=== PATIENT | female | born 1970 | race Caucasian/White ===

== ENCOUNTER 2017-01-26 15:31 | Emergency (ER) | payer OTHER ==
--- NOTE | 2017-01-26 15:51 | UC ---
Respiratory Complaint HPI - HPI Summary HPI Summary: The patient comes in today for: 1. Shortness of breath: Onset: 4 hours. Palliative/provocative: "exertion makes her dizzy." Quality: Shortness of breath. Region: Lungs. Severity: No chest pain 0/10 Time: Constant. Associated symptoms: FEvers: None Left hip replacement: 3 weeks ago in [place] score: 6 * - History of Current Complaint Chief Complaint: UCRespiratory Stated Complaint: SOB Time Seen by Provider: 01/26/17 15:45 Hx Obtained From: Patient Hx Last Menstrual Period: 12/27/16 - Allergies/Home Medications Allergies/Adverse Reactions: Allergies Allergy/AdvReac Type Severity Reaction Status Date / Time Codeine Allergy Intermediate Hives Verified 01/26/17 15:42 Diphenhydramine Allergy Mild hyperactivi Verified 01/26/17 15:42 [From Benadryl] ty Home Medications: Home Medications Albuterol HFA INHALER* [Ventolin HFA Inhaler*] 2 puff INH Q4HR PRN 01/26/17 [ History Confirmed 01/26/17] Aspirin [Aspirin 81 MG TAB] 1 tab PO DAILY 01/26/17 [History Confirmed 01/26/17] Bisacodyl [Dulcolax] 1 tab PO BID 01/26/17 [History Confirmed 01/26/17] Senna [Correctol Herbal Tea] 2 tab PO BEDTIME 01/26/17 [History Confirmed ] PMH/Surg Hx/FS Hx/Imm Hx Previously Healthy: No - Diverticulosis Endocrine History Of: Denies: Diabetes, Thyroid Disease, Hyperthyroidism, Hypothyroidism, Dyslipidemia Cardiovascular History Of: Reports: Hypertension Denies: Cardiac Disorders, Pacemaker/ICD, Myocardial Infarction, Congestive Heart Failure, Atrial Fibrillation, Deep Vein Thrombosis, Bleeding Disorders Respiratory History Of: Reports: Asthma - SLIGHT. HAS INHALER Denies: COPD, Bronchitis, Pneumonia, Pulmonary Embolism GI/ History Of: Denies: Gastroesophageal Reflux, Ulcer, Gastrointestinal Bleed, Gall Bladder Disease, Kidney Stones, Diverticulitis, Renal Disease, Urosepsis Neurological History Of: Denies: CVA Psychological History Of: Denies: Anxiety Cancer History Of: Denies: Lung Cancer, Colorectal Cancer, Breast Cancer, Prostate Cancer, Cervical Cancer Other History Of: Anticoagulant Therapy Negative For: HIV, Hepatitis B, Hepatitis C - Surgical History Surgical History: Yes Surgery Procedure, Year, and Place: breast reduction. gallbladder removed. Left Total Hip Replacement 01/06/17- [facility] - Family History Known Family History: Negative: Hypertension, Diabetes - Social History Occupation: Employed Full-time Alcohol Use: None Substance Use Type: None Smoking Status (MU): Never Smoked Tobacco - Immunization History Most Recent Influenza Vaccination: no Review of Systems Constitutional: Negative Eyes: Negative ENT: Negative Respiratory: Shortness Of Breath Cardiovascular: Negative Gastrointestinal: Negative All Other Systems Reviewed And Are Negative: Yes Physical Exam Triage Information Reviewed: Yes Appearance: Well-Appearing, No Pain Distress, Well-Nourished, Other: - she complains of shortness of breath which is a bit better sitting up. Vital Signs: Initial Vital Signs Temp 97.9 F 01/26/17 15:34 Pulse 103 01/26/17 15:34 Resp 18 01/26/17 15:34 BP 133/82 01/26/17 15:34 Pulse Ox 100 01/26/17 15:34 Vital Signs Reviewed: Yes Eyes: Positive: Conjunctiva Clear. Negative: Discharge ENT: Positive: Hearing grossly normal. Negative: Pharyngeal erythema, Nasal congestion, Nasal drainage, TM bulging, TM dull, TM red, Tonsillar swelling, Tonsillar exudate Dental: Negative: Gross Decay/Caries @, Dental Fracture @ Neck: Positive: Supple, Nontender, No Lymphadenopathy. Negative: Nuchal Rigidity Respiratory: Positive: Chest non-tender, Lungs clear, No respiratory distress, No accessory muscle use. Negative: Crackles, Wheezing Cardiovascular: Positive: RRR, No Murmur Abdomen Description: Positive: Nontender, No Organomegaly, Soft. Negative: Distended Musculoskeletal: Positive: Strength Intact, ROM Intact, No Edema Neurological: Positive: Alert, Muscle Tone Normal Psychological: Positive: Age Appropriate Behavior, Consolable Skin: Negative: rashes, breakdown UC Diagnostic Evaluation - Laboratory O2 Sat by Pulse Oximetry: 100 Diagnostic Studies Comment: EKG: Rate: 98. Rhythm: Sinus. Ectopy: sinus tachycardia. Acute changes: Deep q in lead III, shallow inverted T in lead III Respiratory Course/Dx - Course Course Of Treatment: Patient was told that I strongly recommend that she go via ambulance to the closest hospital ([facility]). She did not agree iniitially and bargaining had to take place. Eventually, she agreed to go only via private car to [facility]. - Differential Dx/Diagnosis Provider Diagnoses: Shortness of breath--rule out P.E. - Physician Notification/Consults Discussed Patient Care With: Ester Weaver was talked to about this patient. Time Discussed With Above Provider: 16:18 Discharge - Discharge Plan Condition: Stable Disposition: AGAINST MEDICAL ADVICE
[2017-01-26 16:24] VITALS: BP 118/86
== END 2017-01-26 16:23 | disposition left against medical advice (07) ==
LOC: UCCORT 15:31
DX: R06.02 Shortness of breath (principal); I10 Essential (primary) hypertension; J45.909 Unspecified asthma, uncomplicated; Z79.01 Long term (current) use of anticoagulants; Z90.49 Acquired absence of other specified parts of digestive tract; Z88.5 Allergy status to narcotic agent; Z88.8 Allergy status to other drugs, medicaments and biological substances; Z96.642 Presence of left artificial hip joint
CPT/HCPCS: 93005; 99202; G0463

== ENCOUNTER 2017-05-12 09:48 | Emergency (ER) | payer OTHER ==
[2017-05-12 09:55] VITALS: BP 134/78
[2017-05-12] MEDS ORDERED: predniSONE TAB* 20 MG PO ONE (10:07)
--- NOTE | 2017-05-12 10:12 | UC ---
Respiratory Complaint HPI - HPI Summary HPI Summary: Sore throat, congestion and hoarseness starting wednesday. By wednesday this progressed to cough and sob. Puffer and nebulizer has helped but is temporary. she has had wheezing and at times productive cough. Chills last night. no hx of hospitalization but she does have hx of reactive airway disease. she works as a teacher. - History of Current Complaint Chief Complaint: UCRespiratory Stated Complaint: COUGH SHORTNESS OF BREATH Time Seen by Provider: 05/12/17 09:52 Hx Obtained From: Patient Hx Last Menstrual Period: unknown, ablasion Onset/Duration: Gradual Onset, Lasting Days Timing: Constant Severity Initially: Mild Severity Currently: Moderate Character: Cough: Productive Aggravating Factors: Deep Breaths, Recumbent Position Alleviating Factors: Bronchodilator Associated Signs And Symptoms: Positive: Dyspnea, Chills, Wheezing, URI, Nasal Congestion, Hoarseness. Negative: Fever, Pleuritic Chest Pain, Hemoptysis - Risk Factors Pulmonary Embolism Risk Factors: Negative Cardiac Risk Factors: Negative Pseudomonas Risk Factors: Negative Tuberculosis Risk Factors: Negative - Allergies/Home Medications Allergies/Adverse Reactions: Allergies Allergy/AdvReac Type Severity Reaction Status Date / Time Codeine Allergy Intermediate Hives Verified 05/12/17 09:55 Diphenhydramine Allergy Mild hyperactivi Verified 05/12/17 09:55 [From Benadryl] ty PMH/Surg Hx/FS Hx/Imm Hx Previously Healthy: No - reactive airway disease. Other History Of: Anticoagulant Therapy Negative For: HIV, Hepatitis B, Hepatitis C - Surgical History Surgical History: Yes Surgery Procedure, Year, and Place: breast reduction. gallbladder removed. Left Total Hip Replacement 01/06/17- [facility] - Family History Known Family History: Positive: None Negative: Hypertension, Diabetes - Social History Occupation: Employed Full-time Alcohol Use: Rare Substance Use Type: None Smoking Status (MU): Never Smoked Tobacco - Immunization History Most Recent Influenza Vaccination: no Review of Systems Respiratory: Shortness Of Breath, Cough All Other Systems Reviewed And Are Negative: Yes Physical Exam Triage Information Reviewed: Yes Appearance: Well-Appearing - non toxic but there is a frequent cough. she walks to xray joking appropriately and not showing signs of increased work of breathing. Vital Signs: Initial Vital Signs Temp 98.3 F 05/12/17 09:51 Pulse 108 05/12/17 09:51 Resp 22 08/30/17 09:51 BP 134/78 05/12/17 09:51 Pulse Ox 99 05/12/17 09:51 Vital Signs Reviewed: Yes Eye Exam: Normal Eyes: Positive: Conjunctiva Clear ENT: Positive: Nasal congestion. Negative: Pharyngeal erythema, Tonsillar swelling, Tonsillar exudate, Trismus, Muffled/hoarse voice Neck exam: Normal Neck: Positive: Supple, Nontender, No Lymphadenopathy Respiratory Exam: Other - good air movement throughout. there is prolonged expiratory phase. she did breathing treatment one-two hours ago. Respiratory: Positive: No respiratory distress, No accessory muscle use, Respiratory distress Cardiovascular Exam: Other - HR in triage noted elevated. currently it is 90 during my exam at rest. Cardiovascular: Positive: RRR, No Murmur, Pulses Normal Abdominal Exam: Normal Musculoskeletal Exam: Other - neg homans bakari. no redness or induration. Musculoskeletal: Positive: No Edema Neurological Exam: Normal Psychological Exam: Normal Skin Exam: Normal UC Diagnostic Evaluation - Laboratory O2 Sat by Pulse Oximetry: 99 Respiratory Course/Dx - Course Course Of Treatment: URi progressing to bronchitis with reactive airway disease. she has never had complications or hospitalization. we will aggressively manage. she also agrees to return to ed if there is any worsening. pertusis pending for cough to the point of vomiting. - Differential Dx/Diagnosis Provider Diagnoses: acute bronchitis with reactive airway disease. she is doing well and in no distress. HR at rest is normal. she will be careful and go to the Ed for any worsening. x ray report pending. x ray reviewed and no signs of pneumonia or pneumothorax. Discharge - Discharge Plan Condition: Good Disposition: HOME Prescriptions: Azithromyxin LOIS (NF) [Z-Lois (Zithromax) 250 mg tabs #6] 6 tab PO .TODAY, THEN 1 DAILY #6 tab Benzonatate CAP* [Tessalon 100 MG CAP*] 100 mg PO TID PRN #20 cap PRN Reason: Cough predniSONE TAB* [Deltasone TAB*] 20 mg PO DAILY #20 tab
--- NOTE | 2017-05-12 10:35 | RAD ---
INDICATION: Cough and shortness of breath. COMPARISON: Comparison is made with a prior chest x-ray study from September 30, 2013. TECHNIQUE: Dual-energy PA and lateral views of the chest were obtained. FINDINGS: The heart is within normal limits in size. Mediastinal and hilar contours appear within normal limits. The lungs are clear. No pleural effusion or pneumothorax is seen. IMPRESSION: NO EVIDENCE FOR ACTIVE CARDIOPULMONARY DISEASE.
== END 2017-05-12 11:01 | disposition home or self-care (01) ==
LOC: UCCORT 09:48
DX: J02.9 Acute pharyngitis, unspecified (principal)
CPT/HCPCS: 71020; 87798; 99212; G0463; J7512

== ENCOUNTER 2017-10-29 09:45 | Emergency (ER) | payer OTHER ==
--- NOTE | 2017-10-29 12:40 | UC ---
Abdominal Pain Female HPI - HPI Summary HPI Summary: "I think I have c-diff again". pt describes this as nausea, bloating and diarrhea for 2 weeks. last pm, the pain and distension became " massive". pt reports feeling "feverish" but hasn't taken her temperature. the c-diff was in december of 2016 and the result of being tx with antibiotics for diverticular disease. diarrhea has mucous but not blood and is watery. no antibiotic use, travel hx, well water or raw seafodd consumption. - History of Current Complaint Stated Complaint: POSS C-DIFF Time Seen by Provider: 10/29/17 12:21 Hx Obtained From: Patient Hx Last Menstrual Period: unknown, ablasion ?: No Onset/Duration: Gradual Onset Timing: Constant Severity Initially: Mild Severity Currently: Severe Location: Diffuse Radiates: No Character: Sharp Aggravating Factor(s): Movement Alleviating Factor(s): Nothing Associated Signs and Symptoms: Positive: Fever, Nausea, Diarrhea. Negative: Vomiting Simlar Episode/Dx as:: c-diff and diverticular dz Allergies/Adverse Reactions: Allergies Allergy/AdvReac Type Severity Reaction Status Date / Time codeine Allergy Hives Verified 10/29/17 12:37 diphenhydramine Allergy Agitation Verified 10/29/17 12:37 Home Medications: Home Medications Glycerin [Fleet Liquid Glycerin Sup] 5.6 gm MT PRN 10/29/17 [History] PMH/Surg Hx/FS Hx/Imm Hx GI/ History: Diverticulitis, Other - c-diff colitis Other GI/ History: c-diff colitis Other History Of: Anticoagulant Therapy Negative For: HIV, Hepatitis B, Hepatitis C - Surgical History Surgical History: Yes Surgery Procedure, Year, and Place: breast reduction. gallbladder removed. Left Total Hip Replacement 01/06/17- [facility] - Family History Known Family History: Positive: None Negative: Hypertension, Diabetes - Social History Occupation: Employed Full-time Lives: With Family Alcohol Use: Rare Substance Use Type: None Smoking Status (MU): Never Smoked Tobacco - Immunization History Most Recent Influenza Vaccination: no Vaccination Up to Date: Yes Review of Systems Constitutional: Fever, Other - malaise Skin: Negative Eyes: Negative ENT: Negative Respiratory: Negative Cardiovascular: Negative Gastrointestinal: Abdominal Pain, Diarrhea, Nausea Genitourinary: Negative Motor: Negative Neurovascular: Negative Musculoskeletal: Negative Neurological: Negative Psychological: Negative Is Patient Immunocompromised?: No All Other Systems Reviewed And Are Negative: Yes Physical Exam Triage Information Reviewed: Yes Appearance: Well-Appearing Vital Signs Reviewed: Yes Eye Exam: Normal ENT: Positive: Hearing grossly normal Neck: Positive: Supple, Nontender, No Lymphadenopathy Respiratory: Positive: Lungs clear, Normal breath sounds, No respiratory distress Cardiovascular: Positive: RRR, No Murmur, Pulses Normal Abdomen Description: Positive: Other: - Diffuse tenderness but BLQ's with guarding and rebound tenderness. No mass or HSM, No CVA tenderness.. Negative: Bruit, Pulsatile Mass Bowel Sounds: Positive: Present Musculoskeletal: Positive: No Edema Neurological: Positive: Alert Psychological: Positive: Age Appropriate Behavior Skin Exam: Normal Abd Pain Female Course/Dx - Course Course Of Treatment: pt has an acute abdomen. she has had no recent antibiotics or illness to cause an over c-diff colitis. this could be c-diff but also an appendicitis, diverticulitis and even a perforation. doubtful ectopic. pt requires ER transfer for a higher level of evaluation/care. case was d/w Dr Vela whom agrees. pt insists that I just give her flagyl; however, this would be detrimental to this pt thus transfer advised. pt very agitated at this provider for not just giving her the flagyl. she then proceeded to deny fever, pain and states "it is just a viral illness". she is refusing to sign ama citing her insurance won't pay and she doesn't want to go to the ER. I had pt speak to charge nurse as well since she is not satisfied with myself. pt was given a note for her employer that she came here but again refused to sign any ama. i did advise of the potential risk of those missed diagnoses. pt advised f/ u pcp today. - Differential Dx/Diagnosis Provider Diagnoses: abdominal pain. diarrhea. subjective fever. Discharge - Discharge Plan Condition: Fair Disposition: AGAINST MEDICAL ADVICE Forms: *Work Release Referrals: ASTER Dougherty [Primary Care Provider] -
[2017-10-29 12:46] VITALS: BP 143/92
== END 2017-10-29 13:05 | disposition left against medical advice (07) ==
LOC: UCCORT 09:45
DX: R10.84 Generalized abdominal pain (principal); R19.7 Diarrhea, unspecified; R50.9 Fever, unspecified; Z53.8 Procedure and treatment not carried out for other reasons; Z86.19 Personal history of other infectious and parasitic diseases
CPT/HCPCS: 99212; G0463

== ENCOUNTER 2018-10-29 09:32 | Emergency (ER) | payer OTHER ==
--- OUTSIDE RECORDS SUMMARY | 2018-10-29 10:37 | XMS REPORT | Continuity of Care Document ---
:1970 External Reference #:[id number] Author Name Cuate Iyer M.D., [facility] Address [address] [place] [place] [address] Care Team Providers Name Role Phone Cyndi Kumar MD Care Team Information Regional Account Executive Unavailable Cyndi Kumar MD Primary Care Physician Unavailable Payers Date Identification Numbers Payment Provider Subscriber Policy Number: [id number] [employer] Briana Ann [facility] PayID: [id number] [address] [place] [address] Expires: 2016 Policy Number: [id number] Medicaid Briana A [facility] PayID: [id number] [address] [place] [address] Advance Directives Description No Information Available Problems Description No Information Family History Date Family Member(s) Observation Comments Father due to () Septicemia Father Hypertension Mother due to COPD () Mother due to () Congestive Heart Failure : (age First Brother due to Failed sounds like viral 51 Years) Heart Transplant cardiomyopathy Social History Type Date Description Comments Sex Unknown Lives With Children Diet Healthy, Well Balanced Occupation Computer Systems Software Architect Provider Tobacco Use Start: Unknown Never Smoked Cigarettes Smoking Status Reviewed: 10/19/18 Never Smoked Cigarettes ETOH Use Rarely consumes alcohol Allergies, Adverse Reactions, Alerts Date Description Reaction Status Severity Comments Benadryl hyperactivity Active 04/13/2016 Codeine Active Codeine/Acetaminophen naseau and vomiting Inactive Medications Medication Date Status Form Strength Qnty SIG Indications Ordering Provider Lisinopril-Hydroch 10/19/19 Active Tablets 20-12.5mg 60tab take two I10 Jaylon lorothiazide 19 s tablets , Cuate by mouth Denys Luevano, every [facility] day Trazodone HCL Active Tablets 50mg 1 tab at Unknown 00 bedtime as needed for sleep Xanax 04/01/20 Hx Tablets 1mg 2tabs 1 by Pomjos, 16 - mouth 45 Carlos, Unknown minutes M.D. prior to mri. may repeat once as needed for anxiety Metaxalone 03/05/20 Hx Tablets 800mg 60tab 1 by Ana, 16 - s mouth Carlos, Unknown 3-4 M.D. times daily for muscle spasms Diclofenac Sodium 03/05/20 Hx Tablets 75mg 60tab take [address] s tablet Carlos, Unknown by mouth M.DNanette twice daily with food Lisinopril 01/24/20 Hx Tablets 20mg 30tab 1 po qd I10 Jaylon 13 - s , Cuate 10/19/19 Denys Luevano, 19 [facility] Hydrochlorothiazid 01/24/20 Hx Tablets 25mg 90tab 1 po qd Jaylon e 13 - s , Cuate 12/16/19 Denys Luevano, 16 [facility] Amlodipine 01/24/20 Hx Tablets 5mg 60tab 1 po qd Jaylon Besylate 13 - s , Cuate 12/16/19 Denys Luevano, 16 [facility] Aspirin 07/24/20 Hx Tablets 81mg 1 po qd 427.31 Bo Armendariz - Nataly 12/16/19 Floridalma Iverson , MSN, MANAGER PROGRAMMING Omeprazole 07/16/20 Hx Capsules 20mg 30cap 1 po q 530.[address] s day , Cuate 12/16/19 Denys Luevano, 16 [facility] Aspirin 07/16/20 Hx Tablets 325mg 1 po qd 427.31 Kala, 10 - Nataly Unknown Floridalma , MSN, MANAGER PROGRAMMING Bystolic 05/02/20 Hx Tablets 5mg 30tab 1 po qd Jaylon 10 - s , Cuate 01/24/20 Denys Luevano, 13 [facility] Bystolic 03/14/20 Hx Tablets 2.5mg 30tab 1qd - Jaylon 10 - s take one , Cuate Peng tablet Denys Luevano, by mouth [facility] every day Atenolol 01/31/20 Hx Tablets 50mg 60tab 1 po bid Armendariz, 10 - s Nataly 03/14/20 Floridalma 10 , MSN, MANAGER PROGRAMMING Atenolol 06/25/20 Hx Tablets 50mg 30tab 1 po qd Armendariz, 09 - s Nataly 01/31/20 Floridalma 10 , MSN, MANAGER PROGRAMMING Metoprolol 06/24/20 Hx Tablets 50mg 30tab 1 tab po Armendariz, Succinate 09 - ER 24HR s qpm Nataly 06/25/20 Floridalma 09 , MSN, MANAGER PROGRAMMING Hydrochlorothiazid 06/11/20 Hx Tablets 25mg 90tab 1 po qd Jaylon e 09 - s , Cuate Luevano M.D., [facility] Bystolic 06/11/20 Hx Tablets 10mg 30tab 1 po qd Jaylon 09 - s , Cuate 06/24/20 Denys Luevano, 09 [facility] Lexapro Hx Tablets 10mg 30tab 1 po qd Jaylon 00 - s , Cuate Luevano M.D., [facility] Abilify Hx Tablets 2mg po qd Jaylon 00 - , Cuate Unknown Denys Luevano, [facility] Alprazolam Hx Tablets 0.25mg 1 po qd Jaylon 00 - prn , Cuate Luevano M.D., [facility] Vitamin D3 Hx Capsules 2000Unit 2 caps Jaylon 00 - po qd , Cuate 12/16/19 Denys Luevano, 16 [facility] Requip Hx Tablets 0.5mg 1 tab qd Jaylon 00 - hs , Cuate Luevano M.D., [facility] Lexapro Hx Tablets 10mg 1 po qd Unknown 00 - Unknown Xanax Hx Tablets prn Unknown 00 - Unknown Medications Administered in Office Medication Date Status Form Strength Qnty SIG Indications Ordering Provider Methylprednisolone 12/15 Administered Injection Brenda acetate Aicha (Depomedrol) 80mg S., RPAC injection Immunizations Description No Information Available Vital Signs Date Vital Result Comment 10/19/2018 2:37pm BP Systolic Sitting Right Arm 168 mmHg BP Diastolic Sitting Right Arm 106 mmHg Heart Rate 77 /min Respiratory Rate 18 /min Height 69 inches 5'9" Weight 236.00 lb BMI (Body Mass Index) 34.8 kg/m2 BSA (Body Surface Area) 2.22 m2 Lyons body weight in kilograms 66 kg O2 % BldC Oximetry 98 % Ora 12/16/2015 9:57am BP Systolic 157 mmHg BP Diastolic 86 mmHg Heart Rate 103 /min Height 68 inches 5'8" Weight 224.00 lb BMI (Body Mass Index) 34.1 kg/m2 BSA (Body Surface Area) 2.14 m2 07/24/2010 11:30am BP Systolic Sitting Left Arm 108 mmHg BP Diastolic Sitting Left Arm 70 mmHg Heart Rate 72 /min Regular Respiratory Rate 12 /min Weight 227.00 lb 07/16/2010 3:50pm BP Systolic Sitting Right Arm 134 mmHg BP Diastolic Sitting Right Arm 86 mmHg Heart Rate 68 /min regular Respiratory Rate 16 /min Height 69 inches 5'9" Weight 229.00 lb BMI (Body Mass Index) 33.8 kg/m2 03/14/2010 2:53pm Heart Rate 78 /min Respiratory Rate 16 /min Weight 233.00 lb 06/11/2009 2:21pm Heart Rate 64 /min Regular Respiratory Rate 16 /min Weight 227.00 lb Results Description No Information Available Procedures Date Code Description Status 10/19/2018 71587 EKG-Tracing And Report Completed 03/05/2016 81043 Radiologic Exam Hip Unilateral With Pelvis 2-3 Views Completed 03/05/2016 94659 Radiologic Exam Hip Unilateral With Pelvis 2-3 Views Completed 03/05/2016 37594 Radiology, L-S Spine Complete Completed 03/05/2016 44084 Radiology, L-S Spine Complete Completed 12/16/2015 42914 Radiology, Shoulder: Two Views (Sso) Completed 12/16/2015 00627 Radiology, Shoulder: Two Views (Sso) Completed 12/16/2015 89852 Asp./Injection major joint Completed 04/20/2011 77020 EKG Interpretation And Report Only Completed 07/24/2010 64698 Echocardiogram Complete Completed 07/16/2010 38209 EKG-Tracing And Report Completed 07/15/2010 66719 Holter Monitor 24HR Inter/Report Completed 06/19/2009 16455 Holter Monitor 24HR Inter/Report Completed 06/11/2009 24366 EKG-Tracing And Report Completed 05/27/2009 40654 Stress Test Interpre And Report Only Completed 05/27/2009 55951 Stress Test Physician Super Only Completed 05/27/2009 36213 Ejection Fraction Completed 05/27/2009 14370 Myocardial Wall Motion Completed 05/27/2009 98738 Cardiolite Stress/Rest Spect Completed Encounters Type Date Location Provider Dx Diagnosis Office Visit 10/19/2018 Cardiology Office Aura Maraltyson I10 Essential ( primary) 2:20p Desmond., JOE hypertension R06.02 Shortness of breath R00.2 Palpitations I48.0 Paroxysmal atrial fibrillation Office Visit 04/13/2016 3:30p Orthopaedic Office Aicha Gutierrez M25.552 Pain in S., [facility] left hip M24.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, left hip M16.12 Unilateral primary osteoarthritis, left hip Office Visit 04/01/2016 1:30p Orthopaedic Office Aicha Gutierrez M25.552 Pain in S., [facility] left hip M24.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, left hip Office Visit 03/05/2016 3:15p Orthopaedic Office Aicha Gutierrez M25.552 Pain in S., [facility] left hip M54.5 Low back pain Office Visit 12/16/2015 10:00a Orthopaedic Office Aicha Gutierrez M25.512 Pain in left S., [facility] shoulder M65.222 Calcific tendinitis, left upper arm Office Visit 08/03/2011 Cardiology Cuate Iyer 786.50 Pain Chest Unspec 11:38a Office Denys Luevano, [facility] Office Visit 07/24/2010 Cardiology Nataly Armendariz 427.31 Atrial 11:20a Office Floridalma MSN, Fibrillation MANAGER PROGRAMMING 401.1 Hypertension Benign Office Visit 03/14/2010 2:40p Cardiology Office Cuate Iyer 785.1 Palpitations Denys Luevano, [facility] 780.79 Malaise And Fatigue Other Office Visit 06/11/2009 2:00p Cardiology Office Cuate Iyer 786.59 Pain Chest Denys Luevano, [facility] Other 401.1 Hypertension Benign 425.4 Cardiomyopathy Other Prim Plan of Treatment Future Appointment(s):11/14/2018 1:20 pm - Tavia Chavarria, PA at Cardiology [id number]/19/2018 - Tavia Chavarria, PAI10 Essential (primary) hypertensionNew Medication:Lisinopril-Hydrochlorothiazide 20-12.5 mg - take two tablets by mouth every dayNew Labs:Comprehensive Metabolic Panel, Ordered: 10/19Magnesium, Ordered: 10/19/18Basic Metabolic Panel, Scheduled: Magnesium, Scheduled: 10/26/18Comments:Start lisinopril-HCTZ 40-25mg daily. Labs today and again in 7-10 days. Continue to monitor BP's at home. Bring a record of the home BP's to the next visit. Sodium restriction of <2gm recommended.R06.02 Shortness of breathNew Orders:Echocardiogram, Exercise Stress , Ordered: 10/19/18Comments:We will evaluate the patient's ischemic potential with a stress echocardiogram. We will also be ableto assess for arrhythmias and hemodynamic response to exercise.R00.2 PalpitationsNew Labs:CBC W/Automated Diff , Ordered: 10/19/18TSH Reflex FT4 And/Or FT3, Ordered: 10/19/18Comments:Will order a 48 hour HM to evaluate for arrhythmias. Will check CBC and TSH.I48.0 Paroxysmal atrial fibrillationNew Orders:48 Hour Holter Monitor, Ordered: Comments:She will wear a 48 hour HM as above.AllFollow up:After testing
[2018-10-29 10:46] VITALS: BP 146/86
--- NOTE | 2018-10-29 10:58 | UC ---
Respiratory Complaint HPI - HPI Summary HPI Summary: Third visit this week for cough with shortness of breath, currently on day 3 of azithromycin for treatment of bronchitis. Feels dizzy and unwell, and finds it difficult to speak. No chest pain or palpitations. - History of Current Complaint Chief Complaint: UCGeneralIllness Stated Complaint: CHEST CONGESTION, COUGH Time Seen by Provider: 10/29/18 10:57 Hx Obtained From: Patient Hx Last Menstrual Period: unknown, ablasion Onset/Duration: Lasting Days - 5 Pain Intensity: 0 Character: Cough: Productive Aggravating Factors: Deep Breaths, Recumbent Position Associated Signs And Symptoms: Positive: Dyspnea, Dizziness, Nasal Congestion - Risk Factors Pulmonary Embolism Risk Factors: Negative Cardiac Risk Factors: Negative Pseudomonas Risk Factors: Negative Tuberculosis Risk Factors: Negative - Allergies/Home Medications Allergies/Adverse Reactions: Allergies Allergy/AdvReac Type Severity Reaction Status Date / Time codeine Allergy Hives Verified 10/29/17 12:37 diphenhydramine Allergy Agitation Verified 10/29/17 12:37 Home Medications: Home Medications Azithromycin 500 mg PO DAILY 10/29/18 [History Confirmed 10/29/18] PMH/Surg Hx/FS Hx/Imm Hx Previously Healthy: Yes Other History Of: Anticoagulant Therapy Negative For: HIV, Hepatitis B, Hepatitis C - Surgical History Surgical History: Yes Surgery Procedure, Year, and Place: breast reduction. gallbladder removed. Left Total Hip Replacement 01/06/17- [facility] - Family History Known Family History: Positive: Non-Contributory - Social History Occupation: Employed Full-time Lives: With Family Alcohol Use: Rare Substance Use Type: None Smoking Status (MU): Never Smoked Tobacco - Immunization History Most Recent Influenza Vaccination: no Vaccination Up to Date: Yes Review of Systems All Other Systems Reviewed And Are Negative: Yes Constitutional: Positive: Fatigue Skin: Positive: Negative Eyes: Positive: Negative ENT: Positive: Negative Respiratory: Positive: Shortness Of Breath, Cough Cardiovascular: Positive: Negative Gastrointestinal: Positive: Negative Genitourinary: Positive: Negative Motor: Positive: Negative Neurovascular: Positive: Negative Musculoskeletal: Positive: Negative Neurological: Positive: Headache, Other - dizziness Psychological: Positive: Negative Is Patient Immunocompromised?: No Physical Exam Appearance: Ill-Appearing Vital Signs: Initial Vital Signs Temp 96.9 F 10/29/18 10:43 Pulse 80 10/29/18 10:43 Resp 20 10/29/18 10:43 BP 146/86 10/29/18 10:43 Pulse Ox 98 10/29/18 10:43 ENT: Positive: Pharynx normal, TMs normal Neck: Positive: Supple, Nontender, No Lymphadenopathy Respiratory: Positive: No respiratory distress, Decreased breath sounds - to left base, Crackles - left base Cardiovascular: Positive: RRR, No Murmur UC Diagnostic Evaluation - Laboratory O2 Sat by Pulse Oximetry: 98 Diagnostic Studies Comment: chest xray without pneumonia per Dr. Berry. Respiratory Course/Dx - Course Course Of Treatment: prednisone added, albuterol via nebs (has a nebulizer at home). - Differential Dx/Diagnosis Differential Diagnosis/HQI/PQRI: Bronchitis, Lower Resp Infection Provider Diagnosis: Bronchitis Discharge - Sign-Out/Discharge Documenting (check all that apply): Patient Departure All imaging exams completed and their final reports reviewed: No Studies - Discharge Plan Condition: Stable Disposition: HOME Prescriptions: Albuterol 2.5MG/3ML (0.083%)* [Ventolin 2.5 MG/3 ML NEB.MARCI*] 2.5 mg INH Q6H PRN #40 [email or web address] PRN Reason: Wheezing predniSONE TAB* [Deltasone 20 MG TAB*] 2 tab PO DAILY #10 tab Patient Education Materials: Acute Bronchitis (ED) Referrals: No Primary Care Phys,NOPCP [Primary Care Provider] - Additional Instructions: For relief of breathlessnes, begin use of prednisone 40mg once daily with food for 5 days. By tomorrow, this should allow you to breathe more fully. use albuterol nebulizers up to 4 times per day to relieve breathlessness. Complete your course of azithromycin. - Billing Disposition and Condition Condition: STABLE Disposition: Home
== END 2018-10-29 11:44 | disposition home or self-care (01) ==
LOC: UCCORT 09:32
DX: J40 Bronchitis, not specified as acute or chronic (principal); Z88.5 Allergy status to narcotic agent; Z88.8 Allergy status to other drugs, medicaments and biological substances
CPT/HCPCS: 71046; 99212; G0463

== ENCOUNTER 2018-11-07 09:53 | Observation (INO) | payer OTHER ==
[2018-11-07] MEDS ORDERED: Albuterol/Ipratropium NEB.SOL* Albuterol 2.5 MG/Ipratropium 0.5 MG 3 ML INH ONE (11:05)
[2018-11-07] MEDS ORDERED: Dexamethasone IV* 4 MG/ML 1 ML (4 MG) IM ONE (11:06)
--- NOTE | 2018-11-07 11:15 | ED ---
Respiratory - HPI Summary HPI Summary: Patient is a 48-year-old female presenting to the ED with a three-week history of SOB. She states she has been seen 3 times by her PCP as well as urgent care. X-ray and d-dimer both been negative. She continues to have worsening SOB, and states she is unable to walk a short distance without needing to sit down. She has never had a history of asthma or COPD. She denies any fever, however endorses intermittent sweats and chills. She endorses cough and congestion feeling with some production of sputum which is white. She endorses some bilateral lower abdominal pain, which she states is often due to coughing. She states she has not been unable to go to work 3 weeks due to her worsening SOB. She has been treated with prednisone and azithromycin as well as the oral inhalers and has been using nebulizer treatments (given by her PCP) 3 times daily without improvement. He is tearful on arrival she states she is struggling to breathe. - History of Current Complaint Chief Complaint: EDShortnessOfBreath Stated Complaint: SOB Time Seen by Provider: 11/07/18 10:32 Hx Obtained From: Patient Onset/Duration: Sudden Onset Timing: Constant Initial Severity: Severe Current Severity: Severe Pain Intensity: 0 Character: Cough (Productive) Sputum Amount: Small Sputum Color: White Alleviating Factor(s): Nothing Associated Signs and Symptoms: Negative - Risk Factors Status Asthmaticus Risk Factors: Negative Pulmonary Embolism Risk Factors: Negative Cardiac Risk Factors: Negative Tuberculosis Risk Factors: Negative - Allergy/Home Medications Allergies/Adverse Reactions: Allergies Allergy/AdvReac Type Severity Reaction Status Date / Time codeine Allergy Hives Verified 11/07/18 10:04 diphenhydramine Allergy Agitation Verified 11/07/18 10:04 Home Medications: Home Medications ALPRAZolam TAB* [Xanax TAB*] 0.5 mg PO QPM PRN 11/07/18 [History Confirmed 11/07] PMH/Surg Hx/FS Hx/Imm Hx Previously Healthy: Yes Endocrine/Hematology History: Reports: Hx Anticoagulant Therapy Denies: Hx Diabetes, Hx Thyroid Disease Cardiovascular History: Reports: Hx Hypertension Denies: Hx Congestive Heart Failure, Hx Deep Vein Thrombosis, Hx Myocardial Infarction, Hx Pacemaker/ICD Respiratory History: Reports: Hx Asthma - SLIGHT. HAS INHALER Denies: Hx Chronic Obstructive Pulmonary Disease (COPD), Hx Lung Cancer, Hx Pneumonia, Hx Pulmonary Embolism GI History: Denies: Hx Gall Bladder Disease, Hx Gastrointestinal Bleed, Hx Ulcer, Hx Urosepsis History: Denies: Hx Kidney Stones, Hx Renal Disease Psychiatric History: Denies: Hx Anxiety - Surgical History Surgery Procedure, Year, and Place: breast reduction. gallbladder removed. Left Total Hip Replacement 01/06/17- [facility] - Immunization History Hx Pertussis Vaccination: No Immunizations Up to Date: Yes Infectious Disease History: Yes Infectious Disease History: Reports: Hx Clostridium Difficile, Hx of Known/ Suspected MRSA - 2016 Denies: Traveled Outside the [place] in Last 30 Days - Family History Known Family History: Positive: Non-Contributory - Social History Occupation: Employed Full-time Lives: With Family Alcohol Use: Rare Hx Substance Use: No Substance Use Type: Reports: None Smoking Status (MU): Never Smoked Tobacco Review of Systems Positive: Fatigue, Skin Diaphoresis. Negative: Fever Positive: Shortness Of Breath, Cough Genitourinary: Negative Positive: no symptoms reported, see HPI Positive: Edema - bilaterally +1. Negative: Arthralgia, Myalgia Skin: Negative Neurological: Negative All Other Systems Reviewed And Are Negative: Yes Physical Exam Triage Information Reviewed: Yes Vital Signs On Initial Exam: Initial Vitals Temp Pulse Resp BP Pulse Ox 98.5 F 110 20 136/97 97 11/07/18 10:01 11/07/18 10:01 11/07/18 10:01 11/07/18 10:01 11/07/18 10:01 Vital Signs Reviewed: Yes Appearance: Positive: Well-Appearing, Well-Nourished Skin: Positive: Warm, Skin Color Reflects Adequate Perfusion Neck: Positive: Supple, No Lymphadenopathy Respiratory/Lung Sounds: Positive: Rhonchi - LLL Cardiovascular: Positive: Tachycardia, Leg Edema Left, Leg Edema Right Abdomen Description: Positive: Nontender, No Organomegaly, Soft Musculoskeletal: Positive: Strength/ROM Intact, Edema Left, Edema Right Neurological: Positive: Speech Normal Psychiatric: Positive: Normal, Affect/Mood Appropriate AVPU Assessment: Alert Diagnostics - Vital Signs Vital Signs Temp Pulse Resp BP Pulse Ox 11/07/18 10:01 98.5 F 110 20 136/97 97 - Laboratory Result Diagrams: 11/07/18 11:27 11/07/18 11:27 Lab Statement: Any lab studies that have been ordered have been reviewed, and results considered in the medical decision making process. Disposition - Course Course Of Treatment: Physical examination, patient appears slightly diaphoretic. She is tearful, stating she is having difficulty breathing. Heart rate 110, respirations 20, 98.5. She states she has had a prednisone taper, azithromycin, nebulizer treatments and albuterol inhaler at home without relief. No history of asthma or COPD. No allergen history. She does endorse cough with slight production of white mucus. On last visit to the , xrays and d-dimer obtained which was negative. Dimer negative today as well. CT chest shows no acute findings or infection. Hx of granulomatous disease. Peak flow shows 260-300. Troponin 0.00. Awaiting sputum culture. Awaiting stool culture. BNP elevated at 693. Patient endorses hx of HTN, but denies cardiac hx otherwise. She states she takes hydrochlorathiazide daily and has been compliant with this medication. Discussed case with hospitalist who agrees to observe. - Differential Dx - Cardiopulmonary Differential Diagnoses - Cardiopulmonary: Other - Elevated BNP, SOB, neck pain - Diagnoses Provider Diagnoses: SOB (shortness of breath) - Physician Notifications Discussed Care Of Patient With: Skylar Crocker Instructed by Provider To: MD Will See In ED Discharge - Sign-Out/Discharge Documenting (check all that apply): Patient Departure All imaging exams completed and their final reports reviewed: No Patient Received Moderate/Deep Sedation with Procedure: No - Discharge Plan Condition: Stable Disposition: ADMITTED TO [facility] - Billing Disposition and Condition Condition: STABLE Disposition: Admitted to [facility]
[2018-11-07 11:42] LABS: Hematocrit 39 % (35-47); Hemoglobin 13.2 g/dl (12.0-16.0); Mean Corpuscular HGB Conc 34 g/dl (31-36); Mean Corpuscular Hemoglobin 29 pg (27-31); Mean Corpuscular Volume 87 fL (80-97); Mean Platelet Volume 7.2 fL (7.4-10.4); Platelet Count 270 10^3/ul (150-450); Red Blood Count 4.49 10^6/ul (4.00-5.40); Red Cell Distribution Width 13 % (10.5-15); White Blood Count 14.5 10^3/ul (3.5-10.8)
[2018-11-07 12:00] LABS: ALT 17 U/L (7-52); AST 20 U/L (13-39); Albumin 4.4 g/dL (3.2-5.2); Albumin/Globulin Ratio 1.5 (1-3); Alkaline Phosphatase 52 U/L (34-104); Anion Gap 9 mmol/L (2-11); BUN/Creatinine Ratio 13.5 (8-20); Blood Urea Nitrogen 12 mg/dL (6-24); CO2 Carbon Dioxide 24 mmol/L (22-32); Calcium 9.2 mg/dL (8.6-10.3); Chloride 100 mmol/L (101-111); EGFR African American 81.2 (>60); EGFR Non-African American 67.1 (>60); Globulin 2.9 g/dL (2-4); Glucose 87 mg/dL (70-100); Magnesium 1.9 mg/dL (1.9-2.7); Potassium 4.1 mmol/L (3.5-5.0); Sodium 133 mmol/L (135-145); Total Protein 7.3 g/dL (6.4-8.9)
[2018-11-07] MEDS ORDERED: ALPRAZolam TAB* 0.5 MG PO PRN (15:55)
[2018-11-07] MEDS ORDERED: traZODone TAB* 50 MG TAB PO PRN (15:55)
[2018-11-07 16:47] LABS: Influenza A Molecular NEGATIVE (Negative); Influenza B Molecular NEGATIVE (Negative)
[2018-11-07 16:48] LABS: HCG Pregnancy < 0.60 mIU/mL
[2018-11-07] MEDS: Enoxaparin(*) 40 MG/0.4 ML SYR SUBCUT SCH (17:43)
--- NOTE | 2018-11-07 18:06 | HP ---
CC: Dr. Hernandez, [facility] * HISTORY AND PHYSICAL: DATE OF ADMISSION: 11/07/18 TIME OF ADMISSION: 4 p.m. CHIEF COMPLAINT: Shortness of breath. HISTORY OF PRESENT ILLNESS: This is a 48-year-old female with history of hypertension, who presents to the emergency department with 3 weeks of worsening shortness of breath. She said she had seen her physician at least 4 times and she has been prescribed a Z-Gunnar, albuterol plus nebulizer and prednisone with no relief, in fact the shortness of breath has gotten worse. She is typically very active and is able to climb flights of stairs without any dyspnea but now just standing from sitting is too taxing. She has gone home from work nearly everyday early for the past few weeks because she is too short of breath. She notes an occasional cough but is mostly dry. She has not had any fevers throughout this course. She notes some chest discomfort, that is described as a pressure that gets worse with exertion and also some tension on her neck that feels like a "choking sensation." Exertion makes it worse. Rest though does not necessarily make it better. She is often short of breath even at rest. She came to the emergency department today not necessarily because it got worse but because she could not take it anymore and it has been going on for so long. She denies any recent headaches, but she does note recent incontinence of urine. No dysuria, hematuria, frequency or pelvic pain. She also complained of 1 episode of diarrhea over the weekend. She also complains of some belly pain on further questioning and she notes that about a month ago, she noted a "pop" in her chest when she was taking a deep inspiration and she was concerned about that as well. PAST MEDICAL HISTORY: Hypertension, history of diverticulitis, history of C. diff colitis. PAST SURGICAL HISTORY: She had a breast reduction, cholecystectomy, and a cyst removed from her nose. HOME MEDICATIONS: 1. Lisinopril. 2. Trazodone p.r.n. SOCIAL HISTORY: She does not smoke cigarettes. She does not use alcohol. She works as a teacher and teaches toddlers. FAMILY HISTORY: Her brother at age 15 due to complications of a heart transplant. Her mom had heart problems but she said she was a heavy smoker. Healthcare proxy is her boyfriend, Jerry at [phone] REVIEW OF SYSTEMS: As per the HPI, remainder of the 14-point review of systems is negative. She denies any recent stressors in her life. The things have been going very well. PHYSICAL EXAMINATION GENERAL: Alert, anxious, young female in no distress, but she is quite tachypneic and becomes more tachypneic with talking. VITAL SIGNS: Temperature 100, heart rate 116, respiratory rate 18, pulse ox 100 % on room air, blood pressure 129/81. HEENT: Pupils equal, round, reactive to light. Oral mucosa is moist. Uvula is deviated to the left with no pharyngeal exudates or erythema. NECK: No JVP. No cervical adenopathy or supraclavicular adenopathy. She is tachycardiac in a regular rhythm with no murmurs. Her lungs are clear bilaterally with no wheezes or rhonchi. ABDOMEN: Soft, with mild tenderness to deep palpation diffusely with no guarding or rebound. Negative Crawford sign. Liver and spleen are not palpable. No CVA tenderness. EXTREMITIES: No rashes, edema, or ulcers. NEUROLOGIC: She is oriented x3. Her judgment is appropriate. Her strength is 5/5 throughout. DIAGNOSTIC STUDIES/LAB DATA: White blood cells 14.5, hemoglobin 13.2, platelets 270. D-dimer less than 200. Sodium 133, potassium 4.1, chloride 100 , bicarb 24, creatinine 0.89, glucose 87, alk phos 52. Troponin 0.00, CRP is 41.6, BNP 693. Chest CT, evidence of exposure to granulomatous disease in the spleen, fatty infiltration of the liver and no acute noncontrast pathology of the chest. EKG, sinus tachycardia, normal axis, normal intervals, Q wave in III. No ST or T wave changes. ASSESSMENT AND PLAN: This is a 48-year-old female with history of hypertension who presents to the emergency department with 3 weeks of worsening shortness of breath and also complaints of diarrhea, urinary incontinence and chest pain. 1. Acute respiratory distress. She is not hypoxic; however, her constellation of symptoms and finding of elevated CRP and leukocytosis do suggest an underlying inflammatory process, however, this is not evident at this time. Her CT does not show any pulmonary disease. The granulomatous disease that is mentioned is found in the spleen but no evidence of parenchymal lung disease. She has been trialed on prednisone and antibiotics without any relief so I am not suspicious of bronchospasm and her exam does not suggest that as well. She has a mildly elevated BNP, but she is not volume overloaded on exam, so I am not anxious to diurese her. I will check an echocardiogram to rule out a cardiac etiology and monitor her on telemetry. I am checking a flu swab, blood cultures and an HIV as acute HIV could present with these vague symptoms. I am requesting a blood pressure check in both arms. 2. Urinary incontinence. Check UA. She has no history of spinal disease or back problems that would suggest the spinal cord process. 3. Hypertension. Continue with lisinopril. 4. DVT prophylaxis. Lovenox subcutaneously. 5. Diet. Unrestricted. 6. Activity. As tolerated. [id number]/CPS #: [id number] MTDSola
[2018-11-07 18:10] LABS: Urine Appearance Clear; Urine Bacteria Absent (Absent); Urine Bilirubin Negative (Negative); Urine Blood 2+ (Negative); Urine Color Colorless; Urine Glucose 2+(150 mg/dL) (Negative); Urine Ketones Negative (Negative); Urine Nitrite Negative (Negative); Urine Protein Negative (Negative); Urine Red Blood Cell Trace(0-2/hpf) (Absent); Urine Specific Gravity 1.002 (1.010-1.030); Urine Urobilinogen Negative (Negative); Urine White Blood Cell Absent (Absent)
[2018-11-07] MEDS: ALPRAZolam TAB* 0.5 MG PO SCH (21:35)
[2018-11-07] MEDS ORDERED: Senna TAB PO PRN (23:12)
[2018-11-07] MEDS: Benzonatate CAP* 100 MG PO PRN (23:20)
[2018-11-08 05:50] LABS: ABS Basophils 0 10^3/ul (0-0.2); ABS Eosinophils 0 10^3/ul (0-0.6); ABS Lymphocytes 0.7 10^3/ul (1.0-4.8); ABS Monocytes 0.5 10^3/ul (0-0.8); ABS Neutrophils 10.5 10^3/ul (1.5-7.7); ABS Nucleated RBC 0 10^3/ul; Eosinophil % 0 %; Hematocrit 38 % (35-47); Hemoglobin 12.4 g/dl (12.0-16.0); Lymphocyte % 5.9 %; Mean Corpuscular HGB Conc 33 g/dl (31-36); Mean Corpuscular Hemoglobin 29 pg (27-31); Mean Corpuscular Volume 89 fL (80-97); Mean Platelet Volume 7.3 fL (7.4-10.4); Nucleated Red Blood Cells % 0; Platelet Count 275 10^3/ul (150-450); Red Blood Count 4.26 10^6/ul (4.00-5.40); Red Cell Distribution Width 13 % (10.5-15); White Blood Count 11.7 10^3/ul (3.5-10.8)
[2018-11-08 06:09] LABS: Albumin 4.3 g/dL (3.2-5.2); Albumin/Globulin Ratio 1.4 (1-3); BUN/Creatinine Ratio 18.3 (8-20); C Reactive Protein 61.35 mg/L (<8.01); Calcium 9.8 mg/dL (8.6-10.3); EGFR African American 89.3 (>60); EGFR Non-African American 73.8 (>60); Globulin 3.1 g/dL (2-4); Potassium 4.1 mmol/L (3.5-5.0); Total Bilirubin 0.3 mg/dL (0.2-1.0); Total Protein 7.4 g/dL (6.4-8.9)
[2018-11-08] MEDS ORDERED: Lisinopril TAB* 10 MG PO SCH (09:00)
[2018-11-08] MEDS: ALPRAZolam TAB* 0.5 MG PO SCH ×2 (09:23→13:44)
[2018-11-08] MEDS: Benzonatate CAP* 100 MG PO PRN (09:24)
--- NOTE | 2018-11-08 12:28 | ECHO ---
Patient: MARLO VALLE [facility] Rec#: [id number] : 1970 Date: 11/08/2018 Age: 48y Height: 175 cm / 68.9 in Weight: 104 kg / 229.2 lbs Sex: F BSA: 2.19 Room#: 438 Admit Date#: 11/07/2018 Type: Inpatient Referring: Skylar Crocker MD Reading: Valarie Zambrano MD [employer] Manager: Britany Stern,MITULCS,RDMS CC: Cuate Iyer MD Transthoracic Echocardiogram Indication: SOB BP: 136/74 HR: 87 Rhythm: NSR Findings History: Dyspnea, HTN Technical Comments: The study quality is good. Left Ventricle: The left ventricular chamber size is normal. Mild concentric left ventricular hypertrophy is observed. Basal interventricular septum shows moderate thickening. The estimated ejection fraction is 55-60%. There is an E to A reversal in the mitral valve flow pattern suggestive of diastolic dysfunction. Left Atrium: The left atrial chamber size is normal. Right Ventricle: The right ventricular chamber size and systolic function are within normal limits. Right Atrium: The right atrial cavity size is normal. Aortic Valve: The aortic valve is trileaflet. There is no evidence of aortic valve thickening. Systolic excursion of the aortic valve is normal. There is a trace of aortic regurgitation. There is no evidence of aortic stenosis. Mitral Valve: The mitral valve leaflets appear normal. There is a trace of mitral regurgitation. There is no evidence of mitral stenosis. Tricuspid Valve: The tricuspid valve leaflets are normal. There is no evidence of tricuspid valve regurgitation. Unable to estimate the right ventricular systolic pressure. Pulmonic Valve: The pulmonic valve appears normal. There is a trace pulmonic regurgitation. Pericardium: There is no significant pericardial effusion. Aorta: The aortic root appears normal. There is no dilatation of the aortic arch. Pulmonary Artery: The main pulmonary artery appears normal. Venous: The inferior vena cava appears normal in size. There is a greater than 50% respiratory change in the inferior vena cava dimension. Summary: There are no significant changes when compared to the previous study done on 02/15/2006, no overt sig changes. Conclusions The left ventricular chamber size is normal. Mild concentric left ventricular hypertrophy is observed. Basal interventricular septum shows moderate thickening. The estimated ejection fraction is 55-60%. There is an E to A reversal in the mitral valve flow pattern suggestive of diastolic dysfunction. There is a trace of aortic regurgitation. There is a trace of mitral regurgitation. There is a trace pulmonic regurgitation. Measurements Name Value Normal Range RVIDd (AP) 2D 2.7 cm (0.9 - 2.6) RVDdMajor (2D) 3 cm (2.2 - 4.4) RAd ISD 4CH 4.1 cm (3.4 - 4.9) RA (A4C)W 2.7 cm (2.9 - 4.6) IVSd (2D) 1.5 cm (0.6 - 1) LVPWd (2D) 1.1 cm (0.6 - 1) LVIDd (2D) 5 cm (3.6 - 5.4) LVIDs (2D) 3.8 cm - LV FS (2D) 24 % (25 - 45) Aortic Annulus 2.2 cm (1.4 - 2.6) Ao root diameter (2D) 2.9 cm (2.1 - 3.5) Ascending Ao 2.4 cm (2.1 - 3.4) Aortic arch 3 cm (1.8 - 3.4) LA dimension (AP) 2D 3.4 cm (2.3 - 3.8) LAd ISD 4CH 5.4 cm (2.9 - 5.3) LA ISD 4CH W 4.1 cm (2.5 - 4.5) Name Value Normal Range LA ESV BP (A/L) index 23 ml/m2 - Name Value Normal Range MV E-wave Vmax 0.9 m/sec - MV deceleration time 129 msec - MV A-wave Vmax 1 m/sec - MV E:A ratio 0.9 ratio - P. vein S-wave Vmax 0.7 m/sec - P. vein D-wave Vmax 0.6 m/sec - P. vein S:D Vmax ratio 1.2 ratio - P. vein A-wave duration 77 msec - LV septal e' Vmax 0.08 m/sec - LV lateral e' Vmax 0.07 m/sec - LV E:e' septal ratio 12 ratio - LV E:e' lateral ratio 13 ratio - Name Value Normal Range AV Vmax 1.7 m/sec - AV VTI 29 cm - AV peak gradient 11 mmHg - AV mean gradient 6 mmHg - LVOT Vmax 1 m/sec - LVOT VTI 20 cm - LVOT peak gradient 4 mmHg - LVOT mean gradient 2 mmHg - PRADIP Vmax 1.2 m/sec - Name Value Normal Range RAP 8 mmHg - IVC diameter 1.7 cm - Name Value Normal Range PV Vmax 1 m/sec - PV peak gradient 4 mmHg -
[2018-11-08] MEDS ORDERED: Furosemide TAB* 20 MG PO SCH (13:00)
[2018-11-08] MEDS: Enoxaparin(*) 40 MG/0.4 ML SYR SUBCUT SCH (14:41)
[2018-11-08 16:24] VITALS: BP 115/71
--- NOTE | 2018-11-08 23:07 | DS ---
CC: Dr. Hernandez, [facility]; Dr. Charli Mena at [facility] * DISCHARGE SUMMARY: DATE OF ADMISSION: 11/07/18 DATE OF DISCHARGE: 11/08/18 PRINCIPAL DISCHARGE DIAGNOSES: 1. Respiratory distress. 2. Acute on chronic diastolic heart failure. SECONDARY DISCHARGE DIAGNOSES: 1. Hypertension. 2. Insomnia. MEDICATIONS AT THE TIME OF DISCHARGE: 1. Trazodone 50 mg q.h.s. p.r.n. insomnia. 2. Lisinopril 20 mg p.o. daily. 3. Naproxen 500 mg q.12 p.r.n. pain. 4. Albuterol q.6 p.r.n. shortness of breath. 5. Advair one puff inhaled b.i.d. 6. Albuterol one puff inhaled q.4 p.r.n. wheezing. 7. Xanax 0.5 q.h.s. p.r.n. anxiety. PHYSICAL EXAMINATION AT THE TIME OF DISCHARGE: Temperature 97.7, heart rate 92 , respiratory rate 18, pulse ox 95% on room air, blood pressure 115/71. General : Alert, anxious appearing female, who jumps when I enter the room. She is pleasant and breathing comfortably. She is not tachypneic and has no accessory respiratory muscles in use. HEENT: Pupils are equal, round, and reactive to light. Oral mucosa is moist. Neck: No JVP. No cervical adenopathy. Chest: Regular rate and rhythm with no murmurs. Her PMI is not displaced. Lungs are clear bilaterally. She has no wheezes, rhonchi or rales. Abdomen: Soft, nontender, and nondistended. No guarding or rebound. Extremities: No edema, rashes or ulcers. No clubbing. Her radial pulses are 2+ bilaterally. Neurologic : Oriented x3. Her gait is normal. Strength is 5/5 throughout. LABS DURING THIS ADMISSION THAT ARE PERTINENT TO HER PROBLEM: White blood cell 11.7, hemoglobin 12.4, platelets 275. D-dimer less than 200. Troponin 0.00, 0.00, 0.00. CRP 61.35. BNP 693. Imaging: Transthoracic echocardiogram performed on 11/08/18 showed the LV chamber size is normal, mild concentric LVH observed. The estimated EF is 55% to 60%. There is an E to A reversal in the mitral valve flow pattern suggestive of diastolic dysfunction, trace aortic regurgitation, trace mitral regurgitation and trace pulmonic regurgitation. A chest CT performed on 11/07/18 showed evidence of exposure to granulomatous disease which was seen in the spleen, not the lungs. Fatty infiltration of the liver and no acute non-contrast CT pathology of the chest. HOSPITAL COURSE BY PROBLEMS: 1. Respiratory distress: Ms. Nugent presented to the emergency department with shortness of breath for 3 weeks. She has been to the primary care office and urgent care several times without an explanation. She has had a trial of prednisone, nebulizers, inhalers and antibiotics, all with no effects. A CT of chest was unremarkable. ACS was ruled out and a transthoracic echocardiogram suggested diastolic dysfunction, though her physical exam was not overwhelmingly remarkable for volume overload. She was never hypoxic during this admission, and she was able to walk laps around the unit without hypoxia or tachypnea. She likely needs further workup of her dyspnea that is currently unexplained and I may recommend pulmonary function test and I have asked her to call my office in the morning where she can be seen by Dr. Mena with consideration of further testing should he feel it is warranted. I discussed the possibility of PFTs with her or a six-minute walk test. A D-dimer ruled out thromboembolic disease. She did have a frequent cough that sounded suspicious for bronchitis to me; however, she is very hesitant about antibiotics given her history of C. diff, and she had been on antibiotic prior to admission without improvement, so I elected not to start antibiotics and she was in agreement with this plan. I do think there is some component of a bronchitis that can be managed symptomatically and I encouraged her to continue symptomatic management. However, she has not found much relief with that. She did have suggestion of diastolic dysfunction on her echocardiogram, so I am discharging her on a short course of Lasix and suggested that she try it for the next 2 to 3 days and see if she gets any relief. Again, her clinical picture is not completely consistent with decompensated heart failure. 2. Hypertension: She was continued on her home dose of lisinopril. DISPOSITION: Ms. Nugent was discharged to home in fair condition. No objective evidence for respiratory distress was found aside diastolic dysfunction. She will need close follow up and I have discussed this plan with her at length. She is to call my office first thing in the morning to get emergent follow up appointment with Dr. Mena for further evaluation and likely needs further outpatient testing. Functional and/or somatization remains on the differential, however, this will be a diagnosis of exclusion. She is to return to the emergency department should she develop worsening shortness of breath or should she develop chest pain, syncope or any other new symptoms. TIME SPENT: Fifty minutes was spent on this discharge including over half of that time [id number] with the patient. [id number]/[facility] #: [id number]
== END 2018-11-08 18:26 | disposition home or self-care (01) ==
LOC: ED 09:53 → MEDTELE 15:53
PROVIDERS: ADMIT Internal Medicine; ATTEND Internal Medicine
DX: R06.03 Acute respiratory distress (principal); I50.33 Acute on chronic diastolic (congestive) heart failure; I10 Essential (primary) hypertension; G47.00 Insomnia, unspecified; R06.02 Shortness of breath; Z79.01 Long term (current) use of anticoagulants
CPT/HCPCS: 36415; 71250; 80053; 81003; 81015; 83735; 83880; 84484; 84702; 85025; 85027; 85379; 86140; 86703; 87045; 87046; 87641; 87899; 93005; 93306; 96372; 99283; A9270-GY; G0378; J1100; J1650